=== PATIENT | female | born 1985 | race African-American/Black ===

== ENCOUNTER 2021-01-09 15:53 | Emergency (ER) | payer OTHER ==
[2021-01-09 16:08] VITALS: BP 160/79; PULSE 96; TEMP 98.2; BMI 47.7
== END 2021-01-09 17:55 | disposition home or self-care (01) ==
LOC: JERFT 15:53
DX: M25.531 Pain in right wrist (principal); G56.01 Carpal tunnel syndrome, right upper limb
CPT/HCPCS: 73110-TC-RT-FY; 73130-TC-RT-FY; 99283-25